=== PATIENT | male | born 1970 | race Two or more races ===

== ENCOUNTER 2025-04-03 05:38 | Emergency (ER) | payer SELFPAY ==
[2025-04-03 05:45] VITALS: BMI 26.6
[2025-04-03 05:58] VITALS: BP 138/97; PULSE 65; RESP 18; TEMP 36.8; O2SAT 97
--- NOTE | 2025-04-03 06:24 | XR_ITS ---
Examination: CT abdomen and pelvis without contrast. Coronal 3-D reconstructions. Sagittal 2-D reconstructions. Date and time of exam:April 03, 2025 0740 hours INDICATION: Abdominal pain beginning 1:00 AM this morning CTDI: vol (mGy): 8.03 DLP: (mGycm): 413 Technique: Axial images of the abdomen have been obtained, 3 mm slice thickness Intravenous contrast material has not been administered. Low dose protocols were performed. One or more of the following dose reduction techniques were used; automated exposure control, adjustment of the mA and/or KV according to patient size, use of iterative reconstruction technique. Findings: No focal liver or splenic lesions Cholelithiasis No pancreatic mass Left perinephric stranding 2 mm lower pole left renal calculus Minimal left hydronephrosis secondary to 5 mm distal left ureteral calculus No bowel obstruction No diverticulitis Mild thickening urinary bladder wall No pericecal inflammatory change Advanced degenerative disc disease L4-L5 and L5-S1 IMPRESSION: Minimal left hydronephrosis, 5 mm distal left ureteral calculus Cystitis
--- NOTE | 2025-04-03 06:24 | PD.EDRME ---
Rapid Medical Screening Exam RME Arrival date/time: 04/03/25 05:38 55-year-old male presents to the emergency department today for complaints of left-sided flank and inguinal pain acute in onset Chief Complaint: Abdominal Pain Time Seen by Provider: 04/03/25 06:18 Vital signs: Vital Signs Temperature 98.2 F 04/03/25 05:58 Pulse Rate 65 04/03/25 05:58 Respiratory Rate 18 04/03/25 05:58 Blood Pressure 138/97 H 04/03/25 05:58 Pulse Oximetry (%) 97 04/03/25 05:58 Oxygen Delivery Method Room Air 04/03/25 05:58
[2025-04-03] MEDS: HYDROcodone/APAP 5/325 TABLET 1 TAB PO (06:43)
[2025-04-03] MEDS: KETOROLAC INJ 30 MG/ML VIAL IM (06:43)
[2025-04-03 06:47] LABS: Collection Type, Urine Clean Catch; Squamous Epithelial Cell,Urine 0 /hpf (0-5)
[2025-04-03 07:20] LABS: Basophils # (Auto) 0.1 Thou/mm3 (0.0-0.2); Basophils % (Auto) 0 % (0-2.5); Eosinophils # (Auto) 0.7 Thou/mm3 (0.0-0.5); Eosinophils % (Auto) 5 % (0-10); Hematocrit 42.5 % (41.0-53.0); Hemoglobin 15.4 g/dL (13.5-16.0); Immature Granulocytes % (Auto) 0 % (0-0); Immature Granulocytes Auto 0.03 Thou/mm3 (0.00-0.00); Lymphocytes # (Auto) 2.5 Thou/mm3 (1.0-4.8); Lymphocytes % (Auto) 18 % (10-50); Mean Corpuscular HGB Conc 36.2 g/dl (31.0-37.0); Mean Corpuscular Volume 83 fL (80-100); Monocytes # (Auto) 1.2 Thou/mm3 (0.0-0.8); Monocytes % (Auto) 9 % (0-12); Neutrophils # (Auto) 9.3 Thou/mm3 (1.8-7.7); Neutrophils % (Auto) 68 % (37-80); Nucleated Red Blood Cell % 0 /100 WBC (0); Platelet Count 151 Thou/mm3 (140-440); RDW Standard Deviation 38.1 fL (35.1-43.9); Red Blood Count 5.14 Miln/mm3 (4.50-5.90); White Blood Count 13.7 Thou/mm3 (3.8-10.6)
[2025-04-03 07:34] LABS: Alanine Aminotransferase 18 U/L (10-49); Albumin, Serum 4.2 gm/dL (3.5-5.0); Albumin/Globulin Ratio 1.5 (1.2-2.2); Alkaline Phosphatase 80 U/L (46-116); Anion Gap 10 (7-16); Aspartate Amino Transferase 22 U/L (0-34); BUN/Creatinine Ratio 11 Ratio (12-20); Bilirubin,Total 0.9 mg/dL (0.3-1.2); Blood Urea Nitrogen 13 mg/dL (9-23); Calcium 8.7 mg/dL (8.3-10.6); Calcium (Corrected) 8.7 mg/dL (8.5-10.1); Carbon Dioxide 26.5 mMol/L (20.0-31.0); Chloride 102 mMol/L (98-107); Creatinine (Component) 1.2 mg/dL (0.6-1.3); Globulin 2.8 gm/dL (2.3-3.5); Glucose 113 mg/dL (74-106); Lipase 35 U/L (12-53); Osmolality,Calculated 276 (275-295); Potassium 3.5 mMol/L (3.4-5.1); Sodium 138 mMol/L (136-145); eGFR > 60 See Note
[2025-04-03 07:53] LABS: Bilirubin,Urine Negative (Negative); Blood,Urine 1+ (Negative); Clarity,Urine Clear (Clear/Hazy); Color,Urine Yellow (Lt Yel-Yel); Culture Indicated,Urine Not Indicated; Glucose, Urine Negative (Negative); Ketones,Urine Negative (Negative); Leukocyte Esterase,Urine Negative (Negative); Nitrite,Urine Negative (Negative); Protein,Urine Negative (Neg - Trace); RBC,Urine 2 /hpf (0-3); Specific Gravity,Urine 1.019 (1.001-1.035); Urobilinogen,Urine Negative mg/dL (0.0-1.0); WBC,Urine 1 /hpf (0-5)
--- NOTE | 2025-04-03 08:12 | EDNOTE_ITS ---
ED Abdominal Pain RME/HPI General Chief Complaint: Abdominal Pain Stated complaint: PAIN TO L LOW ABD/FLANK Time seen by provider: 04/03/25 06:18 Arrival date/time: 04/03/25 05:38 55-year-old male presents to the emergency department today for complaints of left-sided flank and inguinal pain acute in onset Limitations: no limitations RME / HPI RME / HPI narrative: 04/03/25 05:38 55-year-old male presents to the emergency department today for complaints of left-sided flank and inguinal pain acute in onset Related Data Home Medications ?Medication ?Instructions ?Recorded ?Confirmed No Known Home Medications 03/25/2103/11 Previous Rx's ?Medication ?Instructions ?Recorded hydrocodone 5 mg-acetaminophen 325 1 tab PO BID PRN pa in #10 tabs 04/03/25 mg tablet ibuprofen 800 mg tablet 800 mg PO TID PRN pain #30 t abs 04/03/25 ondansetron 4 mg disintegrating 4 mg PO Q8H PRN nausea and 04/03/25 tablet vomiting #10 tabs tamsulosin 0.4 mg capsule (Flomax) 0.4 mg PO QDAY 14 d ays #14 caps 04/03/25 Allergies Allergy/AdvReac Type Severity Reaction Status Date / Time No Known Allergies Allergy Verified 04/03/25 05:53 Review of Systems Review of Systems Systems Reviewed: All systems reviewed, normal except as documented Constitutional Constitutional: Reports system reviewed and no additional complaints, except as documented, Denies fever(s) and Denies headache(s) Eyes Eyes: Reports system reviewed and no additional complaints, except as documented and Denies blurry vision ENT Ears, Nose, Mouth, and Throat: Reports system reviewed and no additional complaints, except as documented, Denies headache(s), Denies nasal congestion and Denies nasal discharge Cardiovascular Cardiovascular: Reports system reviewed and no additional complaints, except as documented, Denies chest pain and Denies dyspnea Respiratory Respiratory: Reports system reviewed and no additional complaints, except as documented, Denies chest congestion, Denies cough and Denies dyspnea Gastrointestinal Gastrointestinal: Reports system reviewed and no additional complaints, except as documented and Denies abdominal pain Genitourinary Genitourinary: Reports system reviewed and no additional complaints, except as documented, Denies difficulty urinating, Denies dysuria and Reports other (Left flank pain) Integumentary/Breasts Skin/Breast: Reports system reviewed and no additional complaints, except as documented and Denies rash Neurologic Neurologic: Reports system reviewed and no additional complaints, except as documented, Reports as per HPI and Denies headache(s) Past Medical History Past Medical History CARDIAC: Negative Congestive Heart Failure RESPIRATORY: Negative Chronic Obstructive Pulmonary Disease (COPD) GENITOURINARY: Negative Renal Disease ENDOCRINE: Negative Diabetes Mellitus Type 1 or Diabetes Mellitus Type 2 Social History SMOKING STATUS: Never smoker ED Exam General Limitations: Present no limitations General appearance: Present alert and in no apparent distress Head Head exam: Present atraumatic Eye Eye exam: Present normal appearance, PERRL and EOMI ENT ENT exam: Present normal exam, normal oropharynx and mucous membranes moist Neck Neck exam: Present normal inspection, full ROM and trachea midline Chest Chest inspection: Present normal inspection and symmetric chest wall rise Respiratory Respiratory exam: Present normal lung sounds bilaterally; Absent respiratory distress Cardiovascular Cardiovascular exam: Present regular rate, normal rhythm and normal heart sounds Abdominal Exam Abdominal exam: Present soft and normal bowel sounds Extremities Exam Extremities exam: Present normal inspection and full ROM Back Exam Back exam: Present normal inspection and full ROM; Absent tenderness, CVA tenderness (R) or muscle spasm Neurological Exam Neurological exam: Present alert, oriented X3, CN II-XII intact, normal gait and reflexes normal; Absent motor sensory deficit Psychiatric Psychiatric exam: Present normal affect and normal mood Skin Skin exam: Present warm, dry, intact and normal color Course Quality Measures none Orders Category Date Time Status CT abdomen pelvis wo con Stat Exams 04/03/25 06:24 Completed CBC Stat Lab 04/03/25 06:40 Completed Comprehensive Metabolic Panel Stat Lab 04/03/25 06:40 Completed Lipase Stat Lab 04/03/25 06:40 Completed UA, C/S IF [Urinalysis, C/S if Indicated] Stat Lab 04/03/25 06:33 Completed HYDROcodone*/APAP 5/325 [[place] 5/325] Med 04/03/25 06:24 Discontinued 1 tab PO X1 ONE Ketorolac Inj [Toradol Inj] Med 04/03/25 06:24 Discontinued 30 mg IM X1 ONE Ondansetron Odt [Zofran Odt] Med 04/03/25 06:24 Discontinued 4 mg PO X1 ONE Vital Signs Vital signs: Vital Signs Temperature 98.2 F 04/03/25 05:58 Pulse Rate 65 04/03/25 05:58 Respiratory Rate 18 04/03/25 05:58 Blood Pressure 138/97 H 04/03/25 05:58 Pulse Oximetry (%) 97 04/03/25 05:58 Oxygen Delivery Method Room Air 04/03/25 05:58 O2 saturation 97% on room air within normal limits Abdominal Pain MDM MDM Narrative MDM Narrative:: 55-year-old male presents to the emergency department today for complaints of left-sided flank and inguinal pain acute in onset On exam patient well-appearing patient is not appear ill or toxic patient does appear to have pain I suspect patient has kidney stone Lab work as well as imaging obtained imaging consistent with kidney stone At time of reevaluation patient reports pain has subsided reports he feels significantly better Patient be discharged home with pain medication, medication for nausea and Flomax Explained to the patient should symptoms persist or worsen he will need to return for reevaluation patient states understanding. Patient states clearly he understands that he must return if pain persists or worsens Patient data External records reviewed:: [facility] previous records Clinical information provided by:: patient Social determinants that could affect healthcare access:: none Patient has the following chronic illnesses:: None How is presenting disease/condition affected by chronic disease/condition?: no chronic disease Evaluation data The following diagnostics were reviewed and interpreted by me:: lab results and radiology exam(s) Lab and/or radiology exams considered but not ordered:: Labs radiology obtained Interpretation Summary: Reviewed by me Medications / Prescriptions Medications or Prescriptions considered but not ordered:: Given Medication administrations:: Medication Administration History Discontinued Medications Hydrocodone Bitart/Acetaminophen (Hydrocodone/Apap 5/325 Tablet) 1 tab PO X1 ONE Stop: 04/03/25 06:25 Last Admin: 04/03/25 06:43 Dose: 1 tab Documented By: MARLEN Ketorolac Tromethamine (Ketorolac Inj 30 Mg/Ml Vial) 30 mg IM X1 ONE Stop: 04/03/25 06:25 Last Admin: 04/03/25 06:43 Dose: 30 mg Documented By: MARLEN Ondansetron HCl (Ondansetron Odt 4 Mg Tabrap) 4 mg PO X1 ONE; Protocol Stop: 04/03/25 06:25 Last Admin: 04/03/25 06:44 Dose: Not Given Documented By: MARLEN Non-Admin Reason: Patient Refused Given Consultations Consultation(s) initiated? (list below): No Diagnosis Differential diagnosis abdominal pain: abdominal pain, acute appendicitis and pancreatitis Most likely diagnosis given after review of the tests above:: Flank pain, renal colic Admission Indicated Admission indicated?: not indicated Admission Request Was there a request for admission?: No Disposition Plan Disposition Plan: Discharge Discharge Attestation Discharge Attestation: The patient and all family members were given an opportunity to ask questions and understood the discharge instructions. Discharge instructions specifically effects, indications for sooner follow up or return to the emergency department, and the expected course of current diagnosis. Patient condition: Stable Discharge Plan Plan Patient Disposition: HOME (Self Care) Discharge Disposition comment: Stable Prescriptions/Referrals Prescriptions/Med Rec: New ibuprofen 800 mg tablet 800 mg PO TID PRN (Reason: pain) Qty: 30 0RF hydrocodone-acetaminophen 5-325 mg tablet 1 tab PO BID MDD 10 PRN (Reason: pain) Qty: 10 0RF tamsulosin [Flomax] 0.4 mg capsule 0.4 mg PO QDAY 14 Days Qty: 14 0RF ondansetron 4 mg tablet,disintegrating 4 mg PO Q8H PRN (Reason: nausea and vomiting) Qty: 10 0RF No Action No Known Home Medications Referrals: Arnulfo Rosario MD [Primary Care Provider] - 04/05/25 Problem List Clinical Impression: Renal colic on left side Patient/Caregiver Discharge Instructions Education Materials: Anatomy of the Male Urinary Tract Additional Instructions: Please follow up with your primary care doctor in the next 24-48hrs for any worsening symptoms return here immediately Print Language: [place]e Stand Alone Forms: Kim Award Info., Work/School Release, Patient Portal Info Letter PA/AVINASH Supervising Physician MERRICK/AVINASH Supervising Physician: Dr. castillo
[2025-04-03 08:24] VITALS: BP 131/77; PULSE 64; RESP 16; TEMP 36.7; O2SAT 99
== END 2025-04-03 08:24 | disposition home or self-care (01) ==
PROVIDERS: Nurse Practitioner Primary Care; Emergency Provider Family Medicine; PCP Family Medicine
DX: N23 Unspecified renal colic (principal)
CPT/HCPCS: 36415; 74176; 80053; 81001; 83690; 85025; 96372; 99284; J1885; A9270